=== PATIENT | male | born 1950 | race Caucasian/White ===

== ENCOUNTER 2023-08-24 09:13 | Emergency (ER) | payer MEDICARE, OTHER ==
[2023-08-24 09:33] VITALS: BP 153/79; PULSE 65; RESP 18; TEMP 97.6; BMI 25.7
[2023-08-24] MEDS ORDERED: LIDOCAINE 4% PATCH TP ONE (10:46)
[2023-08-24] MEDS ORDERED: KETOROLAC TROMETHAMINE 30 MG/1 ML VIAL ONE (10:46)
[2023-08-24] MEDS: LIDOCAINE 5% TOPICAL PATCH TP ONE (10:51)
[2023-08-24] MEDS: KETOROLAC TROMETHAMINE 30 MG/1 ML VIAL IM ONE (10:51)
[2023-08-24] MEDS ORDERED: LIDOCAINE PATCH REMOVAL MC SCH (22:00)
== END 2023-08-24 12:16 | disposition home or self-care (01) ==
LOC: JERFT 09:13
PROC: 3E0233Z Introduction of Anti-inflammatory into Muscle, Percutaneous Approach (ICD-10-PCS; principal; 2023-08-24)
DX: M54.50 Low back pain, unspecified (principal); X50.9XXA Other and unspecified overexertion or strenuous movements or postures, initial encounter
CPT/HCPCS: 72100-TC-FY; 96372; 99284-25